=== PATIENT | male | born 2000 | race Caucasian/White ===

== ENCOUNTER 2021-12-05 20:24 | Emergency (ER) | payer OTHER ==
[~2021-12-05] VITALS: Ht 182.9 cm; Wt 86.2 kg
[2021-12-05] MEDS ORDERED: AMOX1TAB12 PO (23:23)
--- NOTE | 2021-12-05 23:23 | ED EENT ---
History of Present Illness General Chief Complaint: Oral/Throat Problems Stated Complaint: TONSIL SWELLING/PAIN Nursing Triage Note: Pt with c/o swollen tonsils and difficulty eating, drinking, talking, onset 4 or 5 days ago, with progressive worsening. Ibuprofen and Tylenol have been taken for last two days per pt report with minimal relief. Source: patient Exam Limitations: no limitations History of Present Illness Date Seen by Provider: Dec 05, 2021 Time Seen by Provider: 23:04 Initial Comments Patient presents ER by private conveyance with significant other chief complaint of difficulty eating drinking talking for 5 days ago progressively worsening. He has been using Tylenol Motrin. He has not been swabbed or seen any diarrhea. He does have some occupational exposure to a cement dust. He does not wear a respirator. He has not had any fevers but he does feel like he is chilling. Allergies and Home Medications Allergies Coded Allergies: No Known Drug Allergies (Unverified , 12/05/21) Patient Home Medication List Home Medication List Reviewed: Yes Review of Systems Review of Systems Constitutional: chills; No fever; malaise Eyes: Denies Blindness, Denies Blurred Vision Ears: Denies Dizziness, Denies Pain Nose: denies clots, denies congestion Mouth: denies clots, denies pain Throat: pain, swelling; denies neck stiffness; hoarse; denies aphonia, denies muffled; painful swallowing All Other Systems Reviewed Negative Unless Noted: Yes Past Kebdrvw-[id number]-Pcwrfd Hx Patient Social History Tobacco Use?: No Smokeless Tobacco Frequency: Current Everyday User Use of E-Cig and/or Vaping dev: No Substance use?: No Alcohol Use?: Yes Alcohol Frequency: Once in a while Pt feels they are or have been: No Immunizations Up To Date Influenza Vaccine Up-to-Date: Yes; Up-to-Date First/Initial COVID19 Vaccinat: August 2021 Second COVID19 Vaccination Michael: September 2021 COVID19 Vaccine Professor Of Communication Arts: Marvela Physical Exam Vital Signs Vital Signs - First Documented 12/05/21 21:14 Temp 36.1 Pulse 63 Resp 16 B/P (MAP) 125/74 (91) Pulse Ox 99 O2 Delivery Room Air Height, Weight, BMI Height: '" Weight: lbs. oz. kg; 25.00 BMI Method: General Appearance: WD/WN, no apparent distress Eyes: bilateral eye normal inspection, bilateral eye PERRL, bilateral eye EOMI Ears: bilateral ear auricle normal, bilateral ear canal normal, bilateral ear TM normal Nose: normal inspection; No active bleeding, No discharge Mouth/Throat: normal mouth inspection (Oromucosa is moist, retropharynx is erythematous, injected, swollen left worse than right tonsils are prominent but not kissing. There is no exudate.) Neck: non-tender, full range of motion, supple, normal inspection Cardiovascular: normal peripheral pulses, regular rate, rhythm Respiratory: no respiratory distress, no accessory muscle use Progress/Results/Core Measures Results/Orders Lab Results Laboratory Tests Test 12/05/21 22:27 Range/Units Group A Streptococcus Screen NEGATIVE NEGATIVE My Orders Orders - MARY JO MACHADO Rapid Strep A Screen (12/05/21 22:26) Vital Signs/I&O 12/05/21 21:14 Temp 36.1 Pulse 63 Resp 16 B/P (MAP) 125/74 (91) Pulse Ox 99 O2 Delivery Room Air Blood Pressure Mean: 91 Progress Progress Note : Time: 23:20 Progress Note Bacterial versus viral pharyngitis. We will give him a gram of Rocephin IM and put him on Augmentin for 10 days. Return instructions given. Salt water gargles. No evidence of airway threatening. Departure Impression Primary Impression: Tonsillopharyngitis Disposition: 01 HOME, SELF-CARE Condition: Stable Departure-Patient Inst. Decision time for Depature: 23:20 Referrals: NO,LOCAL PHYSICIAN (PCP/Family) Primary Care Physician Patient Instructions: Sore Throat, Adult (DC) Add. Discharge Instructions: Your tonsils are enlarged and this is because of an infection most likely. It is either viral or bacterial. We will attempt some antibiotics and if that does not cure it is likely viral. The other possibility is there may be a small abscess formed that needs drained but we cannot see today. If the swelling continues to increase despite antibiotics then you need to be rechecked out at an ER, ENT or primary care doctor. Augmentin 1 tablet twice a day with food for 10 days. Tylenol Motrin as necessary for pain and fever. Salt water gargles as often as necessary to reduce the swelling and edema in your throat you can eat and drink better. Chloraseptic sprays are helpful to reduce the pain in your throat. Throat lozenges can be helpful. Get plenty of rest and drink lots of fluids over the next couple days. If you break out in a large rash over your body after initiating antibiotics then this is likely due to a virus and you may stop taking the antibiotics and treat your symptoms conservatively. All discharge instructions reviewed with patient and/or family. Voiced understanding. Scripts Amoxicillin/Potassium Clav (Amox Tr-K Clv 875-125 mg Tab) 1 Each Tablet 1 EACH PO BID for 10 Days, #20 TAB 0 Refills Prov: MARY JO MACHADO 12/05/21 Work/School Note: Work Release Form Date Seen in the Emergency Department: Dec 05, 2021 Return to Work: Dec 07, 2021 Restrictions: No Restrictions MARY JO MACHADO Dec 05, 2021 23:23
[2021-12-05] MEDS ORDERED: LIDOCAINE 1% INJ 20 ML VIAL INJ ONE (23:30)
[2021-12-05] MEDS ORDERED: cefTRIAXone 1,000 MG VIAL IM ONE (23:30)
[2021-12-05] MEDS ORDERED: LIDOCAINE 1% INJ 50 ML (XYLOCAINE) VIAL ONE (23:32)
[2021-12-05 23:48] VITALS: BP 125/74
== END 2021-12-05 23:55 | disposition home or self-care (01) ==
LOC: ER 20:27
DX: B00.2 Herpesviral gingivostomatitis and pharyngotonsillitis (principal); F17.290 Nicotine dependence, other tobacco product, uncomplicated
CPT/HCPCS: 87430; 99284